=== PATIENT | male | born 1955 | race Caucasian/White ===

== ENCOUNTER 2017-03-15 12:02 | Day surgery (SDC) | payer BC ==
[~2017-03-15] VITALS: Ht 177.8 cm; Wt 93.3 kg
[~2017-03-15 12:02] MED LIST: ALBU90OI; ALBU90OI6; ALLEGRA ALLERG180 MG; BUDE.25; MONT10T; Pulmicort Flex90 MCG
== END 2017-03-15 14:02 | disposition home or self-care (01) ==
LOC: ORSCSDS 12:02
PROVIDERS: Internal Medicine Gastroenterology
PROC: 0DBN8ZX Excision of Sigmoid Colon, Via Natural or Artificial Opening Endoscopic, Diagnostic (ICD-10-PCS; principal; 2017-03-15 13:15)
PROC: 0DBL8ZX Excision of Transverse Colon, Via Natural or Artificial Opening Endoscopic, Diagnostic (ICD-10-PCS; principal; 2017-03-15 13:15)
DX: Z12.11 Encounter for screening for malignant neoplasm of colon (principal); D12.3 Benign neoplasm of transverse colon; K63.5 Polyp of colon; K64.8 Other hemorrhoids; K57.30 Diverticulosis of large intestine without perforation or abscess without bleeding; Z86.010 Personal history of colon polyps; J45.909 Unspecified asthma, uncomplicated; Z87.891 Personal history of nicotine dependence
CPT/HCPCS: 88305; J7120

== ENCOUNTER 2021-08-23 09:19 | Emergency (ER) | payer MEDICARE ==
[~2021-08-23] VITALS: Ht 177.8 cm; Wt 99.8 kg
[2021-08-23 10:45] LABS: Hematocrit 45.7 % (37.0-53.0); Hemoglobin 15.6 g/dL (13.5-17.5); Mean Corpuscular HGB 31.7 pg (26.0-34.0); Mean Corpuscular HGB Conc 34.1 g/dL (31.5-36.5); Mean Corpuscular Volume 93 fL (80-100); Mean Platelet Volume 10.4 fL (9.1-12.4); Platelet Count 208 K/mm3 (150-400); RDW Coefficient Variation 12.3 % (11.7-14.2); RDW Standard Deviation 42.5 fL (35.1-46.3); Red Blood Cell Count 4.92 M/mm3 (4.30-5.90); White Blood Cell Count 7.84 K/mm3 (4.00-11.30)
[2021-08-23 10:57] LABS: Prothrombin Time Results 10.5 Sec (9.7-11.5)
[2021-08-23 11:01] LABS: Albumin, Blood 3.9 g/dL (3.4-5.0); Bilirubin, Total 0.5 mg/dL (0.1-1.0); Bun/Creatinine Ratio 14.8 (12.0-20.0); Creatinine, Blood 0.81 mg/dL (0.60-1.20); Globulin, Blood 3.8 g/dL (2.2-4.0); Potassium, Blood 4.2 mmol/L (3.5-5.5); Total Protein, Blood 7.7 g/dL (6.4-8.2)
[2021-08-23 11:24] LABS: Source, Urine Clean Catch
[2021-08-23 11:27] LABS: Appearance, Urine Clear (Clear); Bilirubin, Urine Neg (Neg); Blood, Urine 4+ (Neg); Color, Urine Yellow (P-Yellow); Glucose Qualitative, Urine Neg (Neg); Ketones, Urine Neg (Neg); Leukocyte Esterase, Urine Neg (Neg); Nitrite, Urine Neg (Neg); Protein, Urine 1+ (Neg); Urobilinogen, Urine NORM (Normal)
[2021-08-23 11:27] LABS: BAND PERCENT MAN 4 % (0-8); BASOPHILS ABSOLUTE MAN 0.07 K/mm3 (0.00-0.23); BASOPHILS PERCENT MAN 1 % (0-2); EOSINOPHILS ABSOLUTE MAN 0.07 K/mm3 (0.00-0.68); EOSINOPHILS PERCENT MAN 1 % (0-6); LYMPHOCYTES ABSOLUTE MAN 2.58 K/mm3 (0.84-5.20); LYMPHOCYTES PERCENT MAN 31 % (21-46); MONOCYTES ABSOLUTE MAN 0.31 K/mm3 (0.16-1.47); MONOCYTES PERCENT MAN 4 % (4-13); NEUTROPHILS ABSOLUTE MAN 4.78 K/mm3 (1.96-9.15); SEG NEUTROPHILS PERCENT MAN 57 % (41-73); TOTAL CELLS COUNTED 100
[2021-08-23 11:28] LABS: LYMPHOCYTES % ATYPICAL MANUAL 2 % (0-0)
[2021-08-23 11:41] LABS: Bacteria Few /hpf; Squamous Epithelial Cells Rare /hpf (Few)
[2021-08-23] MEDS ORDERED: Zithromax250 MG PO (12:33)
[2021-08-23] MEDS ORDERED: METPRE4DP PO (12:33)
[2021-08-23] MEDS ORDERED: Ventolin/Prove6.7 GM INH (12:33)
[2021-08-23 12:38] LABS: Influenza A, PCR NEGATIVE (NEGATIVE); Influenza B, PCR NEGATIVE (NEGATIVE); Resp Syncytial Virus, PCR NEGATIVE (NEGATIVE); SARS-Cov-2 (COVID-19) PCR, MMC NEGATIVE (NEGATIVE)
== END 2021-08-23 12:48 | disposition home or self-care (01) ==
LOC: ER 09:19
PROVIDERS: Physician Assistant
DX: J18.9 Pneumonia, unspecified organism (principal); Z20.822 Contact with and (suspected) exposure to COVID-19; Z79.899 Other long term (current) drug therapy; Z87.891 Personal history of nicotine dependence
CPT/HCPCS: 0241U; 36415; 71046; 80053; 81001; 83880; 84484; 85025; 85610; 94640; 94664; J2930; J3475

== ENCOUNTER 2023-04-05 09:20 | Day surgery (SDC) | payer MEDICARE ==
[~2023-04-05] VITALS: Ht 177.8 cm; Wt 95.6 kg
[~2023-04-05 09:20] MED LIST changes: -ALBU90OI; +ALBU90OI INH; +Lactated Ringer's 1,000 ML IV ONE; +METPRE4DP PO; -MONT10T; +MONT10T PO; +Ventolin/Prove6.7 GM INH; +Zithromax250 MG PO; +propofoL 50 ML IV ONE
[2023-04-05] MEDS ORDERED: LOSA50 PO (09:39)
[2023-04-05] MEDS ORDERED: Lactated Ringer's 1,000 ML IV ONE (09:49)
[2023-04-05] MEDS ORDERED: propofoL 50 ML IV ONE (10:59)
[2023-04-05] MEDS ORDERED: ePHEDrine Sulfate 50 MG/ML 1ML Injection ONE (10:59)
[2023-04-05] MEDS ORDERED: Ondansetron HCl 2 MG / ML 2ML Vial ONE ×2 (10:59→11:27)
[2023-04-05] MEDS ORDERED: NS 500 ML IV ONE ×2 (11:09→11:22)
[2023-04-05] MEDS ORDERED: Lidocaine 2% 5 ML SDV ONE (11:11)
[2023-04-05 11:34] VITALS: BP 117/73
== END 2023-04-05 11:54 | disposition home or self-care (01) ==
LOC: ORSCSDS 09:20
PROVIDERS: Internal Medicine Gastroenterology
PROC: 0DBL8ZX Excision of Transverse Colon, Via Natural or Artificial Opening Endoscopic, Diagnostic (ICD-10-PCS; principal; 2023-04-05 10:30)
PROC: 0DBP8ZX Excision of Rectum, Via Natural or Artificial Opening Endoscopic, Diagnostic (ICD-10-PCS; principal; 2023-04-05 10:30)
PROC: 0DBH8ZX Excision of Cecum, Via Natural or Artificial Opening Endoscopic, Diagnostic (ICD-10-PCS; principal; 2023-04-05 10:30)
DX: Z12.11 Encounter for screening for malignant neoplasm of colon (principal); D12.0 Benign neoplasm of cecum; K62.1 Rectal polyp; K63.5 Polyp of colon; K57.30 Diverticulosis of large intestine without perforation or abscess without bleeding; Z86.010 Personal history of colon polyps; J45.909 Unspecified asthma, uncomplicated; Z87.891 Personal history of nicotine dependence; Z79.899 Other long term (current) drug therapy
CPT/HCPCS: 88305; J2405; J2704; J7040; J7120